=== PATIENT | male | born 1990 | race Caucasian/White ===

== ENCOUNTER 2021-12-26 17:26 | Inpatient (IN) | payer BC, SELFPAY ==
--- NOTE | ~2021-12-26 | CT_ITS ---
EXAMINATION: CT ABDOMEN AND PELVIS WITHOUT CONTRAST CLINICAL INFORMATION: Lower abdominal pain. COMPARISON: None TECHNIQUE: Multidetector volumetric imaging was performed from the superior aspect of the liver through the pubic symphysis. Sagittal and coronal reformatted images were obtained on the technologist's workstation. This CT examination was performed using dose optimization techniques as appropriate, variously including the following: *Automated exposure control *Adjustment of mA and/or kV according to patient size (this includes techniques or standardized protocols for targeted exams where dose is matched to indication/reason for exam; i.e. extremities or head) *Use of iterative reconstruction technique DLP: 813 mGy-cm FINDINGS: LUNG BASES: The visualized lung bases are unremarkable. LIVER, GALLBLADDER, AND BILIARY TREE: The liver is normal in size, shape, and attenuation. No focal hepatic lesion or biliary ductal dilatation is present. The gallbladder is unremarkable with no evidence of radiopaque gallstones, gallbladder wall thickening, or obvious pericholecystic inflammatory changes. PANCREAS: Unremarkable. SPLEEN: Unremarkable. ADRENAL GLANDS: Unremarkable. KIDNEYS AND URETERS: The kidneys are normal in size, shape, and attenuation. No hydronephrosis, hydroureter, or calculi seen. No perinephric stranding. BLADDER: Unremarkable. GASTROINTESTINAL TRACT: The appendix is normal. There is diverticulosis of the sigmoid colon with focal diverticulitis of the mid sigmoid. There is focal inflamed diverticulum with surrounding edema in the mesentery and associated bowel wall thickening at the mid sigmoid colon. There is no abscess. There are small air collections at the surface of the colon which are most consistent with diverticula. A small microperforation cannot be entirely excluded however. There is no free air. Small bowel and stomach are unremarkable. ABDOMINAL WALL: No significant hernia is appreciated. LYMPH NODES: Normal. VASCULAR: Unremarkable. PELVIC VISCERA: Unremarkable. OSSEOUS STRUCTURES: Unremarkable. CT/CT abdomen pelvis wo con IMPRESSION: Focal moderate diverticulitis of the mid sigmoid colon Fleischner guidelines were followed. This critical result was discussed with Dr. Mariscal on 12/26/2021, 9:40 PM and it was ascertained that the content and urgency of the report was understood at the time of direct communication.
[2021-12-26 17:30] VITALS: BP 126/75; PULSE 115; RESP 18; TEMP 36.2; O2SAT 100; BMI 33.6
[2021-12-26 18:27] LABS: MANUAL DIFF FLAG NO
[2021-12-26 18:28] LABS: Basophils Percent Auto 0.1 % (0-2); Eosinophils Percent Auto 0.1 % (0-4); Hematocrit 42.9 % (42.0-52.0); Hemoglobin 14.7 g/dl (14.0-18.0); Imm Gran Abs Auto 0.06 X10*3/uL (0.00-0.03); Imm Gran Pct Auto 0.4 % (0.0-0.4); Lymphocytes Absolute Auto 0.8 X10*3/uL (1.2-4.9); Lymphocytes Percent Auto 5.2 % (20-40); Mean Corpuscular HGB Conc 34.3 g/dl (31.0-36.0); Mean Corpuscular Hemoglobin 30.4 pg (27.0-33.0); Mean Corpuscular Volume 88.6 fL (80.0-98.0); Mean Platelet Volume 9.7 fL (9.4-12.4); Monocytes Percent Auto 6.2 % (2-11); Neutrophils Absolute Auto 13.6 x10*3/uL (2.0-8.3); Platelet Count 264 X10*3/uL (160-400); Red Blood Count 4.84 X10*6/uL (4.60-5.80); Red Cell Distribution Width 12.7 % (11.0-16.0); White Blood Count 15.4 X10*3/uL (4.8-10.8)
[2021-12-26 18:29] LABS: Appearance Urine CLEAR; Color Urine DK YELLOW; Glucose Urine UA NEG (NEG); Leukocyte Esterase Urine NEG (NEG); Nitrite Urine NEG (NEG); UACC Culture Trigger NO; Urine Blood TRACE (NEG); Urine Ketones NEG (NEG); Urine Protein NEG (NEG-TRACE)
[2021-12-26 18:45] LABS: Alanine Aminotransferase 55 U/L (0-40); Albumin Level 4.7 g/dL (3.5-5.0); Alkaline Phosphatase 58 U/L (39-117); Anion Gap 15 (12-20); Aspartate Amino Transferase 26 U/L (5-37); Bilirubin Direct 0.3 mg/dL (0.0-0.5); Bilirubin Total 0.7 mg/dL (0.0-1.0); Blood Urea Nitrogen 14 mg/dL (9-16); Calcium 9.8 mg/dL (8.4-10.2); Carbon Dioxide 26 mmol/L (22-29); Chloride 103 mmol/L (96-108); Creatinine Clr Calc Pharmacy 134.7; Estimated Glomerular Filt Rate > 60; Glucose Random 122 mg/dL (60-115); Potassium 4.5 mmol/L (3.3-5.1); RBC Urine 0-2 /HPF (0); Sodium 139 mmol/L (135-145); Squamous Epithelial Cell Urine TRACE /LPF; Total Protein 8.1 g/dL (6.5-8.0); WBC Urine 0-2 /HPF (0-4)
--- NOTE | 2021-12-26 20:50 | ED.ABDPAIN ---
HPI - Abdominal Pain General Chief Complaint: Abdominal Pain Stated Complaint: lower abd pain Time Seen by Provider: 12/26/21 20:50 Source: patient Mode of arrival: ambulatory Limitations: no limitations History of Present Illness HPI narrative: Patient with history of hypertension and high cholesterol Comes here for pain in lower abdomen started since 07:00 the morning no nausea no vomiting pain gets worse on ambulation patient had food at lunch time no frequency had slight dysuria no hematuria no history of kidney stone Related Data Allergies Allergy/AdvReac Type Severity Reaction Status Date / Time No Known Allergies Allergy Verified 12/26/21 17:29 Review of Systems Review of Systems Yes all other systems are reviewed and are negative [facility] Past Medical History Medical History (Updated 12/26/21 @ 23:47 by Magdiel Romo MD) HTN (hypertension) Hyperlipidemia Hypothyroid Social History Social History Alcohol intake: current Alcohol intake frequency: 0-2 drinks per day Alcohol type: beer Patient Tobacco Use Status: Never used Tobacco Use of substances other than those prescribed or required for medical reasons: No Advance Directives: No Advance Directives Information Provided: No Physical Exam ED Vital Signs: Vital Signs - 24 hr 12/26/21 17:30 12/26/21 21:44 Temperature 97.1 F Pulse Rate 115 H 112 H Respiratory Rate 18 18 Blood Pressure 126/75 128/78 Pulse Oximetry 100 96 Oxygen Delivery Method Room Air Room Air BMI result Body Mass Index 33.6 Appearance: Alert. Oriented X3. No acute distress. Eyes: No pallor/icterus ENT: Pharynx normal. Oral Mucosa moist Neck: Normal inspection. Neck supple. CVS: Normal heart rate and rhythm. Pulses normal. Respiratory: No respiratory distress. Equal air entry bilateral, no wheezing/rales/rhonchi Abdomen: Soft , tenderness in right lower and left lower quadrant with guarding no rebound tenderness bowel sounds are sluggish no mass palpable, no CVA tenderness Skin: Skin warm and dry. Normal skin color. Normal skin turgor. Extremities: No lower extremity edema. No calf tenderness Neuro: Oriented X 3. No motor deficit. No sensory deficit.No cerebellar signs , cranial nerves II-XII intact MDM - Abdominal Pain MDM Narrative Medical decision making narrative: Patient with uncomplicated diverticulitis with significant pain and leukocytosis will admit patient for IV antibiotic in the CT scan shows possible microperforation but no free air seen Lab Data Attestation: I reviewed the patient's lab results. Result diagrams: 12/26/21 18:21 12/26/21 18:21 Labs: Lab Results 12/26/21 12/26/21 12/26/21 Range/Units 18:21 18:21 18:21 WBC 15.4 H (4.8-10.8) X10*3/uL RBC 4.84 (4.60-5.80) X10*6/uL Hgb 14.7 (14.0-18.0) g/dl Hct 42.9 (42.0-52.0) % MCV 88.6 (80.0-98.0) fL MCH 30.4 (27.0-33.0) pg MCHC 34.3 (31.0-36.0) g/dl RDW 12.7 (11.0-16.0) % Plt Count 264 (160-400) X10*3/uL MPV 9.7 (9.4-12.4) fL Immature Gran % (Auto) 0.4 (0.0-0.4) % Neut % (Auto) 88.0 H (45-73) % Lymph % (Auto) 5.2 L (20-40) % [place] % (Auto) 6.2 (2-11) % Eos % (Auto) 0.1 (0-4) % Baso % (Auto) 0.1 (0-2) % Lymph # (Auto) 0.8 L (1.2-4.9) X10*3/uL [place] # (Auto) 1.0 (0.1-1.2) X10*3/uL Eos # (Auto) 0.0 (0.0-0.4) X10*3/uL Baso # (Auto) 0.0 (0.0-0.2) X10*3/uL Abs Immat Gran (auto) 0.06 H (0.00-0.03) X10*3/uL Absolute Neuts (auto) 13.6 H (2.0-8.3) x10*3/uL Absolute Nucleated RBC 0.000 (0.0-0.012) X10*3/uL Nucleated RBC % (auto) 0.0 (0.0-0.2) /100WBC Sodium 139 (135-145) mmol/L Potassium 4.5 (3.3-5.1) mmol/L Chloride 103 (96-108) mmol/L Carbon Dioxide 26 (22-29) mmol/L Anion Gap 15 (12-20) BUN 14 (9-16) mg/dL Creatinine 0.90 (0.5-1.4) mg/dL Estim Creat Clear Calc 134.7 Estimated GFR > 60 Random Glucose 122 H (60-115) mg/dL Calcium 9.8 (8.4-10.2) mg/dL Total Bilirubin 0.7 (0.0-1.0) mg/dL Direct Bilirubin 0.3 (0.0-0.5) mg/dL AST 26 (5-37) U/L ALT 55 H (0-40) U/L Alkaline Phosphatase 58 (39-117) U/L Total Protein 8.1 H (6.5-8.0) g/dL Albumin 4.7 (3.5-5.0) g/dL Lipase 13 (8-78) U/L Urine Color DK YELLOW Urine Appearance CLEAR Urine pH 6.0 (5.0-8.0) Ur Specific [place] 1.020 (1.005-1.025) Urine Protein NEG (NEG-TRACE) MG/DL Urine Glucose (UA) NEG (NEG) MG/DL Urine Ketones NEG (NEG) MG/DL Urine Blood TRACE (NEG) Urine Nitrite NEG (NEG) Ur Leukocyte Esterase NEG (NEG) Urine RBC 0-2 (0) /HPF Urine WBC 0-2 (0-4) /HPF Ur Squamous Epith Cells TRACE /LPF Urine Bacteria NONE /LPF COVID-19 (NATHAN) (Negative) COVID-19 Clin Com 12/26/21 Range/Units 22:54 WBC (4.8-10.8) X10*3/uL RBC (4.60-5.80) X10*6/uL Hgb (14.0-18.0) g/dl Hct (42.0-52.0) % MCV (80.0-98.0) fL MCH (27.0-33.0) pg MCHC (31.0-36.0) g/dl RDW (11.0-16.0) % Plt Count (160-400) X10*3/uL MPV (9.4-12.4) fL Immature Gran % (Auto) (0.0-0.4) % Neut % (Auto) (45-73) % Lymph % (Auto) (20-40) % [place] % (Auto) (2-11) % Eos % (Auto) (0-4) % Baso % (Auto) (0-2) % Lymph # (Auto) (1.2-4.9) X10*3/uL [place] # (Auto) (0.1-1.2) X10*3/uL Eos # (Auto) (0.0-0.4) X10*3/uL Baso # (Auto) (0.0-0.2) X10*3/uL Abs Immat Gran (auto) (0.00-0.03) X10*3/uL Absolute Neuts (auto) (2.0-8.3) x10*3/uL Absolute Nucleated RBC (0.0-0.012) X10*3/uL Nucleated RBC % (auto) (0.0-0.2) /100WBC Sodium (135-145) mmol/L Potassium (3.3-5.1) mmol/L Chloride (96-108) mmol/L Carbon Dioxide (22-29) mmol/L Anion Gap (12-20) BUN (9-16) mg/dL Creatinine (0.5-1.4) mg/dL Estim Creat Clear Calc Estimated GFR Random Glucose (60-115) mg/dL Calcium (8.4-10.2) mg/dL Total Bilirubin (0.0-1.0) mg/dL Direct Bilirubin (0.0-0.5) mg/dL AST (5-37) U/L ALT (0-40) U/L Alkaline Phosphatase (39-117) U/L Total Protein (6.5-8.0) g/dL Albumin (3.5-5.0) g/dL Lipase (8-78) U/L Urine Color Urine Appearance Urine pH (5.0-8.0) Ur Specific [place] (1.005-1.025) Urine Protein (NEG-TRACE) MG/DL Urine Glucose (UA) (NEG) MG/DL Urine Ketones (NEG) MG/DL Urine Blood (NEG) Urine Nitrite (NEG) Ur Leukocyte Esterase (NEG) Urine RBC (0) /HPF Urine WBC (0-4) /HPF Ur Squamous Epith Cells /LPF Urine Bacteria /LPF COVID-19 (NATHAN) Negative (Negative) COVID-19 Clin Com See Note Imaging Data CT scan - abdomen: Attestation: I personally reviewed and interpreted this imaging study as follows: Radiologist's impression: GASTROINTESTINAL TRACT: The appendix is normal. There is diverticulosis of the sigmoid colon with focal diverticulitis of the mid sigmoid. There is focal inflamed diverticulum with surrounding edema in the mesentery and associated bowel wall thickening at the mid sigmoid colon. There is no abscess. There are small air collections at the surface of the colon which are most consistent with diverticula. A small microperforation cannot be entirely excluded however. There is no free air. Discharge Plan Discharge Clinical Impression: Diverticulitis Patient Disposition: Admitted As Inpatient
[2021-12-26 21:12] LABS: Lipase 13 U/L (8-78)
[2021-12-26] MEDS: 0.9 % Sodium Chloride 1,000 ML 999 ML IV (21:40)
[2021-12-26 21:44] VITALS: BP 128/78; PULSE 112; RESP 18; O2SAT 96
[2021-12-26] MEDS: Piperacillin Sodium/Tazobactam 3.375 GM in 0.9 % Sodium Chloride 50 ML IV (22:05)
[2021-12-26] MEDS: ondansetron HCL 4 MG/2 ML VIAL IVPUSH (22:05)
[2021-12-26 23:17] LABS: COVID-19 Test Negative (Negative)
[2021-12-26] MEDS: cefTRIAXone sodium 1 GM in 0.9 % Sodium Chloride 50 ML IV (23:30)
--- NOTE | 2021-12-26 23:30 | P.HPHOSP_ITS ---
History of Present Illness Date of Service: 12/26/21 Chief Complaint: Abdominal pain this is a 31-year-old male with past medical history of hypertension, hyperlipidemia, hypothyroidism who presents to the hospital with complaints of abdominal pain in the lower abdomen that started in the a.m.. Patient reports the pain to be 9/10, nonradiating, not relieved with Tylenol, no associated exacerbating factors. Has pain in that area when he urinates, he hasno nausea or vomiting, no diarrhea constipation, no urinary symptoms and no lower extremity edema. Patient denies any fever no chills. No headache or change in vision. On arrival to the ED patient hemodynamically stable with a heart rate of 115 Labs are significant for WBC count of 15.4 otherwise unremarkable UA negative. CT abdomen revealed focal moderate diverticulitis of the mid sigmoid colon with questionable microperforation patient will be admitted further evaluation Review of Systems Review of Systems: Yes all other systems are reviewed and are negative [facility] Medical History HTN (hypertension) Hyperlipidemia Hypothyroid Family History (Updated 12/27/21 @ 06:19 by Olinda Connlel MD) Other No family history of coronary artery disease Surgical History (Updated 12/27/21 @ 06:19 by Olinda Connell MD) H/O adenoidectomy Social History Alcohol intake: current Alcohol intake frequency: 0-2 drinks per day Alcohol type: beer Patient Tobacco Use Status: Never used Tobacco Use of substances other than those prescribed or required for medical reasons: No Advance Directives: No Advance Directives Information Provided: No Meds Allergies Allergy/AdvReac Type Severity Reaction Status Date / Time No Known Allergies Allergy Verified 12/26/21 17:29 Physical Exam Vital Signs and Narrative: Vital Signs: Last Vital Signs Temp 97.1 F 12/26/21 17:30 Pulse 112 H 12/26/21 21:44 Resp 18 12/26/21 21:44 BP 128/78 12/26/21 21:44 Pulse Ox 96 12/26/21 21:44 O2 Del Method 12/26/21 21:44 BMI result Body Mass Index 33.6 Const: General: cooperative and no acute distress Orientation/consciousness: patient oriented x3 Eyes: General: appearance normal, both eyes and all related structures Resp: Effort & Inspection: normal respiratory effort Auscultation: clear to auscultation bilaterally Cardio: Rate: regular rate Rhythm: regular rhythm GI: Other: abdomen is soft, no rebound or guarding, tender in the lower abdomen in both quadrant Palpation (GI): Soft to palpation Auscultation: normal bowel sounds Skin: General skin exam: no rashes or lesions noted Neuro: General: patient oriented x3 Cognition (Neuro): normal cognition Extrem: General: Yes normal to inspection and Yes no pedal edema Results Labs CBC and Chem 7: 12/27/21 04:23 12/27/21 04:23 Labs: Laboratory Results - last 24 hr 12/26/21 12/26/21 12/26/21 18:21 18:21 18:21 MCV 88.6 MCH 30.4 MCHC 34.3 RDW 12.7 Plt Count 264 MPV 9.7 Immature Gran % (Auto) 0.4 Neut % (Auto) 88.0 H Lymph % (Auto) 5.2 L [place] % (Auto) 6.2 Eos % (Auto) 0.1 Baso % (Auto) 0.1 Lymph # (Auto) 0.8 L [place] # (Auto) 1.0 Eos # (Auto) 0.0 Baso # (Auto) 0.0 Abs Immat Gran (auto) 0.06 H Absolute Neuts (auto) 13.6 H Absolute Nucleated RBC 0.000 Nucleated RBC % (auto) 0.0 Anion Gap 15 Estim Creat Clear Calc 134.7 Estimated GFR > 60 Random Glucose 122 H Calcium 9.8 Total Bilirubin 0.7 Direct Bilirubin 0.3 AST 26 ALT 55 H Alkaline Phosphatase 58 Total Protein 8.1 H Albumin 4.7 Lipase 13 Urine Color DK YELLOW Urine Appearance CLEAR Urine pH 6.0 Ur Specific [place] 1.020 Urine Protein NEG Urine Glucose (UA) NEG Urine Ketones NEG Urine Blood TRACE Urine Nitrite NEG Ur Leukocyte Esterase NEG Urine RBC 0-2 Urine WBC 0-2 Ur Squamous Epith Cells TRACE Urine Bacteria NONE COVID-19 (NATHAN) COVID-19 Clin Com 12/26/21 22:54 MCV MCH MCHC RDW Plt Count MPV Immature Gran % (Auto) Neut % (Auto) Lymph % (Auto) [place] % (Auto) Eos % (Auto) Baso % (Auto) Lymph # (Auto) [place] # (Auto) Eos # (Auto) Baso # (Auto) Abs Immat Gran (auto) Absolute Neuts (auto) Absolute Nucleated RBC Nucleated RBC % (auto) Anion Gap Estim Creat Clear Calc Estimated GFR Random Glucose Calcium Total Bilirubin Direct Bilirubin AST ALT Alkaline Phosphatase Total Protein Albumin Lipase Urine Color Urine Appearance Urine pH Ur Specific [place] Urine Protein Urine Glucose (UA) Urine Ketones Urine Blood Urine Nitrite Ur Leukocyte Esterase Urine RBC Urine WBC Ur Squamous Epith Cells Urine Bacteria COVID-19 (NATHAN) Negative COVID-19 Clin Com See Note Imaging Radiologist's Impressions: Impressions Abdomen/Pelvis CT 12/26/21 21:09 IMPRESSION: Focal moderate diverticulitis of the mid sigmoid colon Fleischner guidelines were followed. This critical result was discussed with Dr. Mariscal on 12/26/2021, 9:40 PM and it was ascertained that the content and urgency of the report was understood at the time of direct communication. Assessment and Plan (1) Diverticulitis: Status: Acute Plan this is a 31-year-old male with past medical history of documented hypertension hypothyroidism who presents to the hospital with complaints of abdominal pain found to have diverticulitis # acute diverticulitis - with possible micro perforation as seen on CT scan - patient hemodynamically stable, no rebound or guarding - will treat with IV antibiotics - follow cultures - surgical team consulted due to the possible microperforations seen on CT scan # reported history of hypertension - does not appear to be on any antihypertensives - BP stable at this time - monitor with vitals # reports history of hypothyroidism - does not take any medications - will need outpatient follow-up with PCP DVT prophylaxis: Lovenox given the acute diverticulitis with possible microperforation patient remained minimal 2 night hospital stay for further management and monitoring Quality Stroke Does the patient have a stroke diagnosis?: No VTE Prior VTE?: No VTE Risk Level:: Medical - moderate - high VTE Device Contraindication: Treatment Not Indicated VTE Drug Contraindication: N/A - Med Ordered
[2021-12-26 23:44] VITALS: RESP 18; O2SAT 96
[2021-12-27] MEDS: Enoxaparin Sodium 40 MG/0.4 ML SYRINGE SUBCUT (00:01)
[2021-12-27] MEDS: Morphine Sulfate 4 MG/ML CARTRIDGE IVPUSH ×2 (00:02→04:24)
[2021-12-27] MEDS: metroNIDAZOLE/NS 500 MG/100 ML PIGGYBACK 100 MG IV ×4 (00:04→23:39)
[2021-12-27] MEDS: 0.9 % Sodium Chloride Flush 3 ML SYRINGE IVFLUSH ×3 (00:05→20:33)
[2021-12-27 04:55] LABS: Basophils Percent Auto 0.3 % (0-2); Eosinophils Absolute Auto 0.1 X10*3/uL (0.0-0.4); Eosinophils Percent Auto 0.4 % (0-4); Hematocrit 40.8 % (42.0-52.0); Hemoglobin 13.8 g/dl (14.0-18.0); Imm Gran Abs Auto 0.07 X10*3/uL (0.00-0.03); Imm Gran Pct Auto 0.5 % (0.0-0.4); Lymphocytes Percent Auto 14.2 % (20-40); MANUAL DIFF FLAG NO; Mean Corpuscular HGB Conc 33.8 g/dl (31.0-36.0); Mean Corpuscular Hemoglobin 30.5 pg (27.0-33.0); Mean Corpuscular Volume 90.3 fL (80.0-98.0); Neutrophils Percent Auto 77.6 % (45-73); Platelet Count 238 X10*3/uL (160-400); Red Blood Count 4.52 X10*6/uL (4.60-5.80); Red Cell Distribution Width 12.9 % (11.0-16.0); White Blood Count 14.1 X10*3/uL (4.8-10.8)
[2021-12-27 05:14] LABS: Anion Gap 14 (12-20); Blood Urea Nitrogen 11 mg/dL (9-16); Calcium 9.1 mg/dL (8.4-10.2); Carbon Dioxide 24 mmol/L (22-29); Chloride 104 mmol/L (96-108); Estimated Glomerular Filt Rate > 60; Glucose Random 101 mg/dL (60-115); Potassium 4.1 mmol/L (3.3-5.1); Sodium 138 mmol/L (135-145)
--- NOTE | 2021-12-27 06:34 | PHA.MEDREC ---
Pharmacy Consult ? Medication Reconciliation Pharmacy has reviewed the medication reconciliation completed by Alfie. Inderal dose and directions were not include. Dose is now updated. Keri Martinez, PharmD
[2021-12-27] MEDS: Levothyroxine Sodium 25 MCG TABLET PO (06:37)
[2021-12-27 06:46] VITALS: BP 136/76; PULSE 105; RESP 14; O2SAT 95
--- NOTE | 2021-12-27 07:47 | P.CONGS_ITS ---
History of Present Illness Consult details Consult date: 12/27/21 Requesting physician: Olinda Connell Narrative: 31-year-old male patient presenting with complaints of abdominal pain in the right lower quadrant and suprapubic region beginning yesterday. He reports a prior episode several months ago which resolved spontaneously. Current episode resulted in abdominal pain measuring 8 to 9/10. The pain remains at 9/10 currently. He denies nausea, vomiting, fever, but did report some chills. He has not moved his bowels for several days which is unusual for him. He reports pain with ambulation and pain when trying to have a bowel movement. He presented to the emergency department around 19:00 yesterday. [place] [address] of the abdomen pelvis revealed sigmoid diverticulitis with the possibility of a micro perforation. No free air or abscess is identified. He is admitted for IV antibiotics and pain control. Review of Systems Review of Systems: Yes all other systems are reviewed and are negative Constitutional: Constitutional: Reports chills, Denies fever(s) and Reports poor appetite Cardiovascular: Cardiovascular: Reports Abdominal Distension Gastrointestinal: Gastrointestinal: Reports as per HPI, Reports abdominal pain, Reports bloating, Denies nausea and Denies vomiting PMFSH Past Medical History Medical History HTN (hypertension) Hyperlipidemia Hypothyroid Family History Family History Other No family history of coronary artery disease Surgical History Surgical History H/O adenoidectomy Social History Social History Alcohol intake: current Alcohol intake frequency: 0-2 drinks per day Alcohol type: beer Patient Tobacco Use Status: Never used Tobacco Use of substances other than those prescribed or required for medical reasons: No Advance Directives: No Advance Directives Information Provided: No Meds Allergies Allergy/AdvReac Type Severity Reaction Status Date / Time No Known Allergies Allergy Verified 12/26/21 17:29 Active Medications: Current Medications Acetaminophen (Acetaminophen 325 Mg Tablet) 650 mg PO Q6H PRN PRN Reason: Pain, Mild (Pain Scale 1-3) Atorvastatin Calcium (Atorvastatin Calcium 40 Mg Tablet) 40 mg PO DAILY [facility] Enoxaparin Sodium (Enoxaparin Sodium 40 Mg/0.4 Ml Syringe) 40 mg SUBCUT Q24H [facility] Last Admin: 12/27/21 00:01 Dose: 40 mg Ceftriaxone Sodium 1 gm/ (Sodium Chloride) 50 mls @ 100 mls/hr IV Q24H [facility] Last Infusion: 12/27/21 00:05 Dose: Infused Metronidazole (Flagyl) 500 mg in 100 mls @ 100 mls/hr IV Q8H [facility] Last Admin: 12/27/21 06:33 Dose: 100 mls/hr Levothyroxine Sodium (Levothyroxine Sodium 25 Mcg Tablet) 25 mcg PO DAILY@0600 [facility] Last Admin: 12/27/21 06:37 Dose: 25 mcg Morphine Sulfate (Morphine Sulfate 4 Mg/Ml Cartridge) 4 mg IVPUSH Q4H PRN; Protocol PRN Reason: Pain, Severe (Pain Scale 7-10) Last Admin: 12/27/21 04:24 Dose: 4 mg Ondansetron HCl (Ondansetron Hcl 4 Mg/2 Ml Vial) 4 mg IVPUSH Q8H PRN PRN Reason: Nausea and Vomiting Oxycodone HCl (Oxycodone Hcl Immed Release 5 Mg Tablet) 5 mg PO Q6H PRN PRN Reason: Pain, Severe (Pain Scale 7-10) Pharmacy Consult (Consult Rx Perform Med Rec) 1 each MISCELLANE ONCE PRN PRN Reason: Consult order Sodium Chloride (0.9 % Sodium Chloride Flush 3 Ml Syringe) 3 ml IVFLUSH QSHIFT [facility] Last Admin: 12/27/21 00:05 Dose: 3 ml Home Medications Medication Instructions Recorded Confirmed Last Taken Type levothyroxine 25 mcg tablet 25 mcg PO DAILY 12/27/21 12/27/21 12/26/21 History propranolol 80 mg tablet 1 tab PO BID 12/27/21 12/27/21 12/26/21 History rosuvastatin 10 mg tablet (Crestor) 10 mg PO DAILY 12/27/21 12/27/21 12/26/21 History Physical Exam Vital Signs: Vital Signs: Last Vital Signs Temp 97.1 F 12/26/21 17:30 Pulse 105 H 12/27/21 06:46 Resp 14 12/27/21 06:46 BP 136/76 12/27/21 06:46 Pulse Ox 95 12/27/21 06:46 O2 Del Method 12/27/21 06:46 BMI result Body Mass Index 33.6 Const: General: well developed and tired appearing Nutritional Appearance: well nourished Orientation/consciousness: patient oriented x3 Limitations: no limitations HEENT: Head: Yes normocephalic and Yes atraumatic Ears: hearing grossly normal bilaterally Resp: Effort & Inspection: normal respiratory effort, no audible wheezes, no cough and no respiratory distress GI: Inspection: Yes normal to inspection Palpation (GI): Soft to palpation, Tenderness to palpation present (GI) in the RLQ, in the LUQ and suprapubicly; with no rebound tenderness, no guarding and not rigid Percussion: Yes tympanic to percussion Rectal Exam - Male: Yes deferred Skin: General skin exam: no rashes or lesions noted Neuro: General: patient oriented x3 Extrem: General: Yes no clubbing, cyanosis or edema Results Labs Result diagrams: 12/27/21 04:23 12/27/21 04:23 Labs: Abnormal lab results 12/26/21 12/26/21 12/27/21 Range/Units 18:21 18:21 04:23 WBC 15.4 H 14.1 H (4.8-10.8) X10*3/uL RBC 4.52 L (4.60-5.80) X10*6/uL Hgb 13.8 L (14.0-18.0) g/dl Hct 40.8 L (42.0-52.0) % Immature Gran % (Auto) 0.5 H (0.0-0.4) % Neut % (Auto) 88.0 H 77.6 H (45-73) % Lymph % (Auto) 5.2 L 14.2 L (20-40) % Lymph # (Auto) 0.8 L (1.2-4.9) X10*3/uL Abs Immat Gran (auto) 0.06 H 0.07 H (0.00-0.03) X10*3/uL Absolute Neuts (auto) 13.6 H 11.0 H (2.0-8.3) x10*3/uL Random Glucose 122 H (60-115) mg/dL ALT 55 H (0-40) U/L Total Protein 8.1 H (6.5-8.0) g/dL Short CBC 12/26/21 12/27/21 Range/Units 18:21 04:23 WBC 15.4 H 14.1 H (4.8-10.8) X10*3/uL Hgb 14.7 13.8 L (14.0-18.0) g/dl Hct 42.9 40.8 L (42.0-52.0) % Plt Count 264 238 (160-400) X10*3/uL BMP 12/26/21 12/27/21 18:21 04:23 Sodium 139 138 Potassium 4.5 4.1 Chloride 103 104 Carbon Dioxide 26 24 BUN 14 11 Creatinine 0.90 0.86 Calcium 9.8 9.1 D Liver Function 12/26/21 Range/Units 18:21 Total Bilirubin 0.7 (0.0-1.0) mg/dL Direct Bilirubin 0.3 (0.0-0.5) mg/dL AST 26 (5-37) U/L ALT 55 H (0-40) U/L Alkaline Phosphatase 58 (39-117) U/L Albumin 4.7 (3.5-5.0) g/dL Urine 12/26/21 Range/Units 18:21 Urine Color DK YELLOW Urine Appearance CLEAR Urine pH 6.0 (5.0-8.0) Ur Specific [place] 1.020 (1.005-1.025) Urine Protein NEG (NEG-TRACE) MG/DL Urine Glucose (UA) NEG (NEG) MG/DL All other labs normal. Imaging Abdomen CT scan report/results: image reviewed CT scan - pelvis: image reviewed Assessment and Plan (1) Diverticulitis: Status: Acute Plan 31-year-old male patient presenting with new onset sigmoid diverticulitis with possible micro perforation. Patient presents with an elevated WBC of [address] suggestive of acute sigmoid diverticulitis without abscess or free air. Patient is currently on ceftriaxone and metronidazole. Recommend continuing the antibiotics and transiting to orals once WBC normalizes. Would not anticipate surgical intervention unless recurrent episodes or complicated diverticulitis develops. Patient expressed understanding and agrees with the plan. Procedures Date of Service Date of Service: 12/27/21
[2021-12-27 08:10] VITALS: BP 148/78; PULSE 104; RESP 14; TEMP 37.4; O2SAT 92
[2021-12-27] MEDS: Lactated Ringers 1,000 ML 100 ML IVCONT ×2 (08:30→14:02)
--- NOTE | 2021-12-27 09:55 | HO.PM.IMPN ---
Subjective Subjective Date of Service: 12/27/21 Interval History: cc: abd pain interval history: mostly unchanged, no appetite Cardiovascular Cardiovascular: Reports no additional cardiovascular complaints Respiratory Respiratory: Reports no additional respiratory complaints Physical Exam Vital Signs: Vital Signs: Last Vital Signs Temp 99.4 F 12/27/21 08:10 Pulse 104 H 12/27/21 08:10 Resp 14 12/27/21 08:10 BP 148/78 H 12/27/21 08:10 Pulse Ox 92 12/27/21 08:10 O2 Del Method 12/27/21 08:10 BMI result Body Mass Index 33.6 General: AO X 3, no acute distress Resp: CTA bilateral, no accessory muscles used CVS: S1,S2,RRR GI: soft, tender, non distended Neuro: motor grossly intact, alert Psych: appropriate affect, appropriate insight Objective Data Active Medications Acetaminophen (Acetaminophen 325 Mg Tablet) 650 mg PO Q6H PRN PRN Reason: Pain, Mild (Pain Scale 1-3) Atorvastatin Calcium (Atorvastatin Calcium 40 Mg Tablet) 40 mg PO DAILY [facility] Enoxaparin Sodium (Enoxaparin Sodium 40 Mg/0.4 Ml Syringe) 40 mg SUBCUT Q24H [facility] Last Admin: 12/27/21 00:01 Dose: 40 mg Documented By: NICOLE-MIGUELANGEL Ceftriaxone Sodium 1 gm/ (Sodium Chloride) 50 mls @ 100 mls/hr IV Q24H [facility] Last Infusion: 12/27/21 00:05 Dose: 0 mls/hr Documented By: NICOLE-MIGUELANGEL Metronidazole (Flagyl) 500 mg in 100 mls @ 100 mls/hr IV Q8H [facility] Last Infusion: 12/27/21 08:05 Dose: 0 mls/hr Documented By: JACKSON Lactated Ringer's (Lr) 1,000 mls @ 100 mls/hr IVCONT .Q10H [facility] Last Admin: 12/27/21 08:30 Dose: 100 mls/hr Documented By: JACKSON Levothyroxine Sodium (Levothyroxine Sodium 25 Mcg Tablet) 25 mcg PO DAILY@0600 [facility] Last Admin: 12/27/21 06:37 Dose: 25 mcg Documented By: NICOLE-MIGUELANGEL Morphine Sulfate (Morphine Sulfate 4 Mg/Ml Cartridge) 4 mg IVPUSH Q4H PRN; Protocol PRN Reason: Pain, Severe (Pain Scale 7-10) Last Admin: 12/27/21 04:24 Dose: 4 mg Documented By: RACHEL Ondansetron HCl (Ondansetron Hcl 4 Mg/2 Ml Vial) 4 mg IVPUSH Q8H PRN PRN Reason: Nausea and Vomiting Oxycodone HCl (Oxycodone Hcl Immed Release 5 Mg Tablet) 5 mg PO Q6H PRN PRN Reason: Pain, Severe (Pain Scale 7-10) Pharmacy Consult (Consult Rx Perform Med Rec) 1 each MISCELLANE ONCE PRN PRN Reason: Consult order Sodium Chloride (0.9 % Sodium Chloride Flush 3 Ml Syringe) 3 ml IVFLUSH QSHIFT [facility] Last Admin: 12/27/21 08:05 Dose: Not Given Documented By: JACKSON Non-Admin Reason: IV Running Labs CBC & Chem 7: 12/27/21 04:23 12/27/21 04:23 Labs: Laboratory Results - last 24 hr 12/26/21 12/26/21 12/26/21 18:21 18:21 18:21 MCV 88.6 MCH 30.4 MCHC 34.3 RDW 12.7 Plt Count 264 MPV 9.7 Immature Gran % (Auto) 0.4 Neut % (Auto) 88.0 H Lymph % (Auto) 5.2 L Dickson % (Auto) 6.2 Eos % (Auto) 0.1 Baso % (Auto) 0.1 Lymph # (Auto) 0.8 L Dickson # (Auto) 1.0 Eos # (Auto) 0.0 Baso # (Auto) 0.0 Abs Immat Gran (auto) 0.06 H Absolute Neuts (auto) 13.6 H Absolute Nucleated RBC 0.000 Nucleated RBC % (auto) 0.0 Anion Gap 15 Estim Creat Clear Calc 134.7 Estimated GFR > 60 Random Glucose 122 H Calcium 9.8 Total Bilirubin 0.7 Direct Bilirubin 0.3 AST 26 ALT 55 H Alkaline Phosphatase 58 Total Protein 8.1 H Albumin 4.7 Lipase 13 Urine Color DK YELLOW Urine Appearance CLEAR Urine pH 6.0 Ur Specific [place] 1.020 Urine Protein NEG Urine Glucose (UA) NEG Urine Ketones NEG Urine Blood TRACE Urine Nitrite NEG Ur Leukocyte Esterase NEG Urine RBC 0-2 Urine WBC 0-2 Ur Squamous Epith Cells TRACE Urine Bacteria NONE COVID-19 ([facility]ATHAN) COVID-19 Clin Com 12/26/21 12/27/21 12/27/21 22:54 04:23 04:23 MCV 90.3 MCH 30.5 MCHC 33.8 RDW 12.9 Plt Count 238 MPV 10.0 Immature Gran % (Auto) 0.5 H Neut % (Auto) 77.6 H Lymph % (Auto) 14.2 L Dickson % (Auto) 7.0 Eos % (Auto) 0.4 Baso % (Auto) 0.3 Lymph # (Auto) 2.0 Dickson # (Auto) 1.0 Eos # (Auto) 0.1 Baso # (Auto) 0.0 Abs Immat Gran (auto) 0.07 H Absolute Neuts (auto) 11.0 H Absolute Nucleated RBC 0.000 Nucleated RBC % (auto) 0.0 Anion Gap 14 Estim Creat Clear Calc 141.0 Estimated GFR > 60 Random Glucose 101 Calcium 9.1 D Total Bilirubin Direct Bilirubin AST ALT Alkaline Phosphatase Total Protein Albumin Lipase Urine Color Urine Appearance Urine pH Ur Specific [place] Urine Protein Urine Glucose (UA) Urine Ketones Urine Blood Urine Nitrite Ur Leukocyte Esterase Urine RBC Urine WBC Ur Squamous Epith Cells Urine Bacteria COVID-19 (NATHAN) Negative COVID-19 Clin Com See Note Assessment and Plan (1) Diverticulitis: Status: Acute Plan 31M presented with abd pain acute diverticulitis with microperforation continue rocephin, flagyl follow up cultures npo for now with iv fluids and pain meds surgery following, expected to recover with abx HTN propanolol hld statin hypothyroid synthroid dvt prophylaxis - lovenox full code reason for continued hospitalization:not tolerating po, need for ivf and iv antibiotics as well as close monitoring for microperforation/decompensation Quality Stroke Does the patient have a stroke diagnosis?: No VTE Prior VTE?: No VTE Risk Level:: Medical - moderate - high VTE Device Contraindication: Treatment Not Indicated VTE Drug Contraindication: N/A - Med Ordered
[2021-12-27] MEDS: Atorvastatin Calcium 40 MG TABLET PO (10:37)
[2021-12-27] MEDS: Acetaminophen 325 MG TABLET 650 MG PO (10:37)
[2021-12-27] MEDS: Propranolol HCL 40 MG TABLET 80 MG PO ×2 (11:44→20:32)
--- NOTE | 2021-12-27 11:55 | PC.NURSE ---
RN assumed care at 11am today. Pt alert and oriented x4, calm and cooperative. Pt denies pain now. Pt sleeping upon nurse entering room, easily awoken with verbal stimuli. Pt tolerated PO meds well now. Pt denies N/V now. IV in left AC intact and continues to infuse fluids now without issues, denies pain at IV site, no redness or swelling at IV site. Pt aware of being admitted to room 386 and agrees to plan of care. Call x1 to VINH Earl, waiting for call back now.
[2021-12-27 12:00] VITALS: BP 140/66; PULSE 92; RESP 18; O2SAT 96
--- NOTE | 2021-12-27 12:40 | MHC.CM.PN ---
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
[2021-12-27 14:05] VITALS: BMI 33.6
[2021-12-27 15:32] VITALS: BP 136/68; PULSE 96; RESP 20; TEMP 37; O2SAT 95
[2021-12-27] MEDS: oxyCODONE HCl Immed Release 5 MG TABLET PO (17:17)
[2021-12-27 19:38] VITALS: BP 137/70; PULSE 99; RESP 20; TEMP 37.4; O2SAT 92
[2021-12-27] MEDS: cefTRIAXone sodium 1 GM in 0.9 % Sodium Chloride 50 ML IV (22:46)
[2021-12-28] VITALS (8 sets, daily range): BP systolic 94–139; BP diastolic 56–67; PULSE 78–103; RESP 18; TEMP 36.9–37.9; O2SAT 95–98
[2021-12-28] MEDS: Acetaminophen 325 MG TABLET 650 MG PO ×2 (00:02→08:00)
[2021-12-28] MEDS: Lactated Ringers 1,000 ML 100 ML IVCONT ×2 (02:53→14:52)
[2021-12-28] MEDS: Levothyroxine Sodium 25 MCG TABLET PO (05:55)
[2021-12-28 06:33] LABS: Hematocrit 39.3 % (42.0-52.0); Hemoglobin 13.2 g/dl (14.0-18.0); Mean Corpuscular HGB Conc 33.6 g/dl (31.0-36.0); Mean Corpuscular Hemoglobin 30.3 pg (27.0-33.0); Mean Corpuscular Volume 90.3 fL (80.0-98.0); Mean Platelet Volume 10.2 fL (9.4-12.4); Platelet Count 228 X10*3/uL (160-400); Red Blood Count 4.35 X10*6/uL (4.60-5.80); Red Cell Distribution Width 12.6 % (11.0-16.0); White Blood Count 14.6 X10*3/uL (4.8-10.8)
[2021-12-28 07:00] LABS: Anion Gap 14 (12-20); Blood Urea Nitrogen 12 mg/dL (9-16); Calcium 9.1 mg/dL (8.4-10.2); Carbon Dioxide 27 mmol/L (22-29); Chloride 103 mmol/L (96-108); Creatinine Clr Calc Pharmacy 146.1; Estimated Glomerular Filt Rate > 60; Glucose Fasting 90 mg/dL (60-99); Potassium 4.6 mmol/L (3.3-5.1); Sodium 139 mmol/L (135-145)
[2021-12-28] MEDS: Atorvastatin Calcium 40 MG TABLET PO (07:52)
[2021-12-28] MEDS: metroNIDAZOLE/NS 500 MG/100 ML PIGGYBACK 100 MG IV ×3 (07:52→22:45)
[2021-12-28] MEDS: Propranolol HCL 40 MG TABLET 80 MG PO (07:52)
--- NOTE | 2021-12-28 08:19 | P.PNIM_ITS ---
Subjective Subjective Date of Service: 12/29/21 Interval History: abd pain Review of Systems abd pain seems Similar to yesterday, denies any chest pain , still has no appetite with star with clear start Physical Exam Vital Signs: Vital Signs: Last Vital Signs Temp 98.6 F 12/28/21 07:51 Pulse 94 12/28/21 07:51 Resp 18 12/28/21 07:51 BP 131/65 12/28/21 07:51 Pulse Ox 95 12/28/21 07:51 O2 Del Method 12/28/21 07:51 BMI result Body Mass Index 33.6 Objective Data Active Medications Acetaminophen (Acetaminophen 325 Mg Tablet) 650 mg PO Q6H PRN PRN Reason: Pain, Mild (Pain Scale 1-3) Last Admin: 12/28/21 08:00 Dose: 650 mg Documented By: NIGHAT Atorvastatin Calcium (Atorvastatin Calcium 40 Mg Tablet) 40 mg PO DAILY [facility] Last Admin: 12/28/21 07:52 Dose: 40 mg Documented By: NIGHAT Enoxaparin Sodium (Enoxaparin Sodium 40 Mg/0.4 Ml Syringe) 40 mg SUBCUT Q24H [facility] Last Admin: 12/27/21 23:48 Dose: Not Given Documented By: KENTON Non-Admin Reason: Patient Refused Ceftriaxone Sodium 1 gm/ (Sodium Chloride) 50 mls @ 100 mls/hr IV Q24H [facility] Last Infusion: 12/27/21 23:48 Dose: 0 mls/hr Documented By: KENTON Metronidazole (Flagyl) 500 mg in 100 mls @ 100 mls/hr IV Q8H [facility] Last Admin: 12/28/21 07:52 Dose: 100 mls/hr Documented By: NIGHAT Lactated Ringer's (Lr) 1,000 mls @ 100 mls/hr IVCONT .Q10H [facility] Last Admin: 12/28/21 02:53 Dose: 100 mls/hr Documented By: KENTON Levothyroxine Sodium (Levothyroxine Sodium 25 Mcg Tablet) 25 mcg PO DAILY@0600 [facility] Last Admin: 12/28/21 05:55 Dose: 25 mcg Documented By: KENTON Morphine Sulfate (Morphine Sulfate 4 Mg/Ml Cartridge) 4 mg IVPUSH Q4H PRN; Protocol PRN Reason: Pain, Severe (Pain Scale 7-10) Last Admin: 12/27/21 04:24 Dose: 4 mg Documented By: RACHEL Ondansetron HCl (Ondansetron Hcl 4 Mg/2 Ml Vial) 4 mg IVPUSH Q8H PRN PRN Reason: Nausea and Vomiting Oxycodone HCl (Oxycodone Hcl Immed Release 5 Mg Tablet) 5 mg PO Q6H PRN PRN Reason: Pain, Severe (Pain Scale 7-10) Last Admin: 12/27/21 17:17 Dose: 5 mg Documented By: AURY Pharmacy Consult (Consult Rx Perform Med Rec) 1 each MISCELLANE ONCE PRN PRN Reason: Consult order Propranolol HCl (Propranolol Hcl 40 Mg Tablet) 80 mg PO BID [facility]; Protocol Last Admin: 12/28/21 07:52 Dose: 80 mg Documented By: NIGHAT Sodium Chloride (0.9 % Sodium Chloride Flush 3 Ml Syringe) [facility] Last Admin: 12/28/21 07:52 Dose: Not Given Documented By: NIGHAT Non-Admin Reason: IV Running Labs CBC & Chem 7: 12/29/21 05:46 12/29/21 05:46 Labs: Laboratory Results - last 24 hr 12/28/21 12/28/21 05:36 05:36 MCV 90.3 MCH 30.3 MCHC 33.6 RDW 12.6 Plt Count 228 MPV 10.2 Absolute Nucleated RBC 0.000 Nucleated RBC % (auto) 0.0 Anion Gap 14 Estim Creat Clear Calc 146.1 Estimated GFR > 60 Fasting Glucose 90 Calcium 9.1 Assessment and Plan (1) Diverticulitis: Status: Acute Plan 31M presented with abd pain acute diverticulitis with microperforation continue rocephin, flagyl follow up cultures npo for now with iv fluids and pain meds surgery following, expected to recover with abx HTN propanolol hld statin hypothyroid synthroid obesity: encouraged for weight loss/cut calories dvt prophylaxis - lovenox full code reason for continued hospitalization: Quality Stroke Does the patient have a stroke diagnosis?: No VTE Prior VTE?: No VTE Risk Level:: Medical - moderate - high VTE Device Contraindication: Treatment Not Indicated VTE Drug Contraindication: N/A - Med Ordered
--- NOTE | 2021-12-28 13:01 | MHC.CM.PN ---
STILL REQUIRES PAIN MANAGEMENT. STARTING ON CLEARS
[2021-12-28] MEDS: cefTRIAXone sodium 1 GM in 0.9 % Sodium Chloride 50 ML IV (22:08)
[2021-12-29] MEDS: Lactated Ringers 1,000 ML 100 ML IVCONT (01:03)
[2021-12-29 03:16] VITALS: BP 124/64; PULSE 87; RESP 18; TEMP 37.6; O2SAT 97
[2021-12-29] MEDS: Levothyroxine Sodium 25 MCG TABLET PO (06:00)
[2021-12-29 06:48] LABS: Hematocrit 38.5 % (42.0-52.0); Hemoglobin 12.9 g/dl (14.0-18.0); Mean Corpuscular HGB Conc 33.5 g/dl (31.0-36.0); Mean Corpuscular Hemoglobin 30.1 pg (27.0-33.0); Mean Platelet Volume 10.2 fL (9.4-12.4); Platelet Count 255 X10*3/uL (160-400); Red Blood Count 4.28 X10*6/uL (4.60-5.80); Red Cell Distribution Width 12.5 % (11.0-16.0); White Blood Count 12.8 X10*3/uL (4.8-10.8)
[2021-12-29 07:16] LABS: Anion Gap 13 (12-20); Blood Urea Nitrogen 9 mg/dL (9-16); Calcium 8.7 mg/dL (8.4-10.2); Carbon Dioxide 28 mmol/L (22-29); Chloride 104 mmol/L (96-108); Creatinine Clr Calc Pharmacy 151.6; Estimated Glomerular Filt Rate > 60; Glucose Random 105 mg/dL (60-115); Potassium 4.3 mmol/L (3.3-5.1); Sodium 141 mmol/L (135-145)
[2021-12-29 07:17] VITALS: BP 126/69; PULSE 92; RESP 20; TEMP 37; O2SAT 95
[2021-12-29] MEDS: metroNIDAZOLE/NS 500 MG/100 ML PIGGYBACK 100 MG IV ×2 (07:55→14:51)
[2021-12-29] MEDS: Atorvastatin Calcium 40 MG TABLET PO (07:55)
[2021-12-29] MEDS: Propranolol HCL 40 MG TABLET 80 MG PO (07:55)
[2021-12-29 08:00] VITALS: BP 126/69; PULSE 91; RESP 20; TEMP 37; O2SAT 96
--- NOTE | 2021-12-29 10:58 | PM.PNGS ---
Subjective Subjective Date of Service: 12/29/21 Patient reports: feels better, tolerating liquids well, flatus and bowel movement Interval history: [place] [facility] [place] reports that he is feeling much better and that he is feeling the best he has felt for a while. He has had multiple loose bowel movements this morning but no frankly watery diarrhea. He tolerated breakfast and is hoped his diet will be advanced. He otherwise denies any new complaints or interval change since his evaluation yesterday. Physical Exam Vital Signs: Vital Signs: Last Vital Signs Temp 98.6 F 12/29/21 08:00 Pulse 91 12/29/21 08:00 Resp 20 12/29/21 08:00 BP 126/69 12/29/21 08:00 Pulse Ox 96 12/29/21 08:00 O2 Del Method 12/29/21 08:00 BMI result Body Mass Index 33.6 On exam, he is nontoxic is in good spirits NC/AT, PERRLA, EOMI Sclera are anicteric, conjunctiva pink and moist Mucous membranes are moist Abdomen is obese and soft with no rebound, rigidity, guarding. Patient reports some vague suprapubic discomfort on deep palpation No hernias are appreciated The skin is good turgor and is free of rashes Extremities are free of cyanosis clubbing edema Mood, affect and judgment appear intact Objective Data Active Medications Acetaminophen (Acetaminophen 325 Mg Tablet) 650 mg PO Q6H PRN PRN Reason: Pain, Mild (Pain Scale 1-3) Last Admin: 12/28/21 08:00 Dose: 650 mg Documented By: NIGHAT Atorvastatin Calcium (Atorvastatin Calcium 40 Mg Tablet) 40 mg PO DAILY [facility] Last Admin: 12/29/21 07:55 Dose: 40 mg Documented By: SANDOVAL Enoxaparin Sodium (Enoxaparin Sodium 40 Mg/0.4 Ml Syringe) 40 mg SUBCUT Q24H [facility] Last Admin: 12/28/21 22:51 Dose: Not Given Documented By: ANNMARIE Non-Admin Reason: Patient Refused Ceftriaxone Sodium 1 gm/ (Sodium Chloride) 50 mls @ 100 mls/hr IV Q24H [facility] Last Infusion: 12/28/21 22:47 Dose: 0 mls/hr Documented By: ANNMARIE Metronidazole (Flagyl) 500 mg in 100 mls @ 100 mls/hr IV Q8H [facility] Last Infusion: 12/29/21 08:55 Dose: 0 mls/hr Documented By: SANDOVAL Levothyroxine Sodium (Levothyroxine Sodium 25 Mcg Tablet) 25 mcg PO DAILY@0600 [facility] Last Admin: 12/29/21 06:00 Dose: 25 mcg Documented By: ANNMARIE Morphine Sulfate (Morphine Sulfate 4 Mg/Ml Cartridge) 4 mg IVPUSH Q4H PRN; Protocol PRN Reason: Pain, Severe (Pain Scale 7-10) Last Admin: 12/27/21 04:24 Dose: 4 mg Documented By: NICOLE-MIGUELANGEL Ondansetron HCl (Ondansetron Hcl 4 Mg/2 Ml Vial) 4 mg IVPUSH Q8H PRN PRN Reason: Nausea and Vomiting Oxycodone HCl (Oxycodone Hcl Immed Release 5 Mg Tablet) 5 mg PO Q6H PRN PRN Reason: Pain, Severe (Pain Scale 7-10) Last Admin: 12/27/21 17:17 Dose: 5 mg Documented By: AURY Pharmacy Consult (Consult Rx Perform Med Rec) 1 each MISCELLANE ONCE PRN PRN Reason: Consult order Propranolol HCl (Propranolol Hcl 40 Mg Tablet) 80 mg PO BID [facility]; Protocol Last Admin: 12/29/21 07:55 Dose: 80 mg Documented By: SANDOVAL Sodium Chloride (0.9 % Sodium Chloride Flush 3 Ml Syringe) 3 ml IVFLUSH QSHIFT [facility] Last Admin: 12/29/21 07:56 Dose: Not Given Documented By: SANDOVAL Non-Admin Reason: IV Running Labs CBC & Chem 7: 12/29/21 05:46 12/29/21 05:46 Labs: Laboratory Results - last 24 hr 12/29/21 12/29/21 05:46 05:46 MCV 90.0 MCH 30.1 MCHC 33.5 RDW 12.5 Plt Count 255 MPV 10.2 Absolute Nucleated RBC 0.000 Nucleated RBC % (auto) 0.0 Anion Gap 13 Estim Creat Clear Calc 151.6 Estimated GFR > 60 Random Glucose 105 Calcium 8.7 Procedures Date of Service Date of Service: 12/29/21 Progress Note: A&P Assessment and plan (1) Diverticulitis: Status: Acute Plan Would hold on advancing the diet today since the patient is still reporting some pain and has a mild leukocytosis. Continue to encourage out of bed/ambulation and contact me with any surgical questions. Trend labs. Time Spent With Patient Time: Total time spent is greater than 50% in coordination of care (as documented) at patient's floor/unit and/or counseling patient: Quality Stroke Does the patient have a stroke diagnosis?: No VTE Prior VTE?: No VTE Risk Level:: Medical - moderate - high VTE Device Contraindication: Treatment Not Indicated VTE Drug Contraindication: N/A - Med Ordered
--- NOTE | 2021-12-29 11:01 | HO.PM.IMPN ---
Subjective Subjective Date of Service: 12/29/21 Interval History: abd pain Review of Systems still has abd pain,asked to try liquid diet Physical Exam Vital Signs: Vital Signs: Last Vital Signs Temp 98.6 F 12/29/21 08:00 Pulse 91 12/29/21 08:00 Resp 20 12/29/21 08:00 BP 126/69 12/29/21 08:00 Pulse Ox 96 12/29/21 08:00 O2 Del Method 12/29/21 08:00 BMI result Body Mass Index 33.6 ? General: AO X 3, no acute distress Resp:? CTA bilateral, no accessory muscles used CVS: S1,S2,RRR GI: soft,? tende in llq , non distended or rebound Neuro:? motor grossly intact, alert Psych: appropriate affect, appropriate insight? Objective Data Active Medications Acetaminophen (Acetaminophen 325 Mg Tablet) 650 mg PO Q6H PRN PRN Reason: Pain, Mild (Pain Scale 1-3) Last Admin: 12/28/21 08:00 Dose: 650 mg Documented By: NIGHAT Atorvastatin Calcium (Atorvastatin Calcium 40 Mg Tablet) 40 mg PO DAILY [facility] Last Admin: 12/29/21 07:55 Dose: 40 mg Documented By: SANDOVAL Enoxaparin Sodium (Enoxaparin Sodium 40 Mg/0.4 Ml Syringe) 40 mg SUBCUT Q24H [facility] Last Admin: 12/28/21 22:51 Dose: Not Given Documented By: ANNMARIE Non-Admin Reason: Patient Refused Ceftriaxone Sodium 1 gm/ (Sodium Chloride) 50 mls @ 100 mls/hr IV Q24H [facility] Last Infusion: 12/28/21 22:47 Dose: 0 mls/hr Documented By: ANNMARIE Metronidazole (Flagyl) 500 mg in 100 mls @ 100 mls/hr IV Q8H [facility] Last Infusion: 12/29/21 08:55 Dose: 0 mls/hr Documented By: SANDOVAL Levothyroxine Sodium (Levothyroxine Sodium 25 Mcg Tablet) 25 mcg PO DAILY@0600 [facility] Last Admin: 12/29/21 06:00 Dose: 25 mcg Documented By: ANNMARIE Morphine Sulfate (Morphine Sulfate 4 Mg/Ml Cartridge) 4 mg IVPUSH Q4H PRN; Protocol PRN Reason: Pain, Severe (Pain Scale 7-10) Last Admin: 12/27/21 04:24 Dose: 4 mg Documented By: RACHEL Ondansetron HCl (Ondansetron Hcl 4 Mg/2 Ml Vial) 4 mg IVPUSH Q8H PRN PRN Reason: Nausea and Vomiting Oxycodone HCl (Oxycodone Hcl Immed Release 5 Mg Tablet) 5 mg PO Q6H PRN PRN Reason: Pain, Severe (Pain Scale 7-10) Last Admin: 12/27/21 17:17 Dose: 5 mg Documented By: AURY Pharmacy Consult (Consult Rx Perform Med Rec) 1 each MISCELLANE ONCE PRN PRN Reason: Consult order Propranolol HCl (Propranolol Hcl 40 Mg Tablet) 80 mg PO BID [facility]; Protocol Last Admin: 12/29/21 07:55 Dose: 80 mg Documented By: SANDOVAL Sodium Chloride (0.9 % Sodium Chloride Flush 3 Ml Syringe) 3 ml IVFLUSH QSHIFT [facility] Last Admin: 12/29/21 07:56 Dose: Not Given Documented By: SANDOVAL Non-Admin Reason: IV Running Labs CBC & Chem 7: 12/29/21 05:46 12/29/21 05:46 Labs: Laboratory Results - last 24 hr 12/29/21 12/29/21 05:46 05:46 MCV 90.0 MCH 30.1 MCHC 33.5 RDW 12.5 Plt Count 255 MPV 10.2 Absolute Nucleated RBC 0.000 Nucleated RBC % (auto) 0.0 Anion Gap 13 Estim Creat Clear Calc 151.6 Estimated GFR > 60 Random Glucose 105 Calcium 8.7 Assessment and Plan (1) Diverticulitis: Status: Acute Plan 31M presented with abd pain acute diverticulitis with microperforation still has significant pain continue rocephin, flagyl follow up cultures npo for now with iv fluids and pain meds-iv morpine surgery following, expected to recover with abx HTN propanolol hld statin hypothyroid synthroid obesity: encouraged for weight loss/cut calories dvt prophylaxis - lovenox full code reason for continued hospitalization:?iv antibiotics as well as close monitoring for microperforation/decompensation and pain managemnt, try liquid diet Quality Stroke Does the patient have a stroke diagnosis?: No VTE Prior VTE?: No VTE Risk Level:: Medical - moderate - high VTE Device Contraindication: Treatment Not Indicated VTE Drug Contraindication: N/A - Med Ordered
[2021-12-29 12:00] VITALS: BP 124/72; PULSE 85; RESP 18; TEMP 36.7; O2SAT 98
[2021-12-29] MEDS: 0.9 % Sodium Chloride Flush 3 ML SYRINGE IVFLUSH (14:52)
[2021-12-29 14:53] VITALS: BP 144/78; PULSE 83; RESP 18; TEMP 37.4; O2SAT 96
[2021-12-29 19:59] VITALS: BP 138/81; PULSE 86; RESP 18; TEMP 36.4; O2SAT 95
[2021-12-29] MEDS: Acetaminophen 325 MG TABLET 650 MG PO (23:39)
[2021-12-29] MEDS: cefTRIAXone sodium 1 GM in 0.9 % Sodium Chloride 50 ML IV (23:40)
[2021-12-30] VITALS: BP 117/61; PULSE 88; RESP 18; TEMP 36.9; O2SAT 97
[2021-12-30] MEDS: metroNIDAZOLE/NS 500 MG/100 ML PIGGYBACK 100 MG IV ×2 (00:28→08:54)
[2021-12-30 03:45] VITALS: BP 123/61; PULSE 76; RESP 18; TEMP 36.4; O2SAT 97
[2021-12-30] MEDS: Levothyroxine Sodium 25 MCG TABLET PO (05:55)
[2021-12-30 07:58] VITALS: BP 134/75; PULSE 90; RESP 18; TEMP 36.2; O2SAT 96
[2021-12-30] MEDS: Atorvastatin Calcium 40 MG TABLET PO (08:52)
[2021-12-30] MEDS: Propranolol HCL 40 MG TABLET 80 MG PO (08:53)
[2021-12-30] MEDS: 0.9 % Sodium Chloride Flush 3 ML SYRINGE IVFLUSH (08:54)
--- NOTE | 2021-12-30 10:22 | P.DS_ITS ---
DS: Providers Provider Date of Service: 12/30/21 Date of admission: 12/26/21 23:28 Primary care physician: Nonstaff Physician Consults: 12/27/21 06:14 Consult to General Surgery Routine Consulting Provider: Guero Beckett Reason for consultation: diverticulitis with questionable microperforation Has provider been notified: No DS: Diagnosis Discharge Diagnosis (1) Diverticulitis: Status: Acute DS: Summary Hospital Course Hospital Course: 31-year-old male with past medical history of hypertension, hyperlipidemia, hypothyroidism who presents to the hospital with complaints of? abdominal pain in the lower abdomen? that started in the a.m..? Patient reports? the pain to be 9/10, nonradiating, not relieved with Tylenol, no associated exacerbating factors.? Has pain in that area when he urinates, he hasno nausea or vomiting, no diarrhea constipation, no urinary symptoms and no lower extremity edema.? Patient denies any fever no chills.? No headache or change in vision.? On arrival to the ED patient hemodynamically stable with a heart rate of 115 Labs are significant for WBC count of 15.4 otherwise unremarkable UA negative. ? CT abdomen revealed focal moderate diverticulitis of the mid sigmoid colon with? questionable microperforation ?patient will be admitted further evaluation. Hospital course: patient admitted for left lower abdominal pain found to have diverticulitis with possible microperforation- started on bowel rest, antibiotics IV, pain management patient seems to be improving- tolerating diet, leukocytosis improving, no fever. will advanced regular if tolerates then will plan discharge discussed with the surgery in detail length patient will be going home with p.o. antibiotics. after completing treatment with antibiotic patient should follow-up outpatie nt - consider outpatient GI evaluation for possible colonoscopy ( since patient has diverticulitis)as per pcp. further management outpatient as per PCP. Plan: Complete the course of antibiotic, consider outpatient colonoscopy as above. High-fiber diet. above management discussed with the patient in detail length she understand and in agreement with the above plan, time spent 50 minute. Time Spent with Patient Time attestation: Total time spent providing and/or coordinating discharge services: Discharge coordination time: Greater than 30 minutes Quality: Safe Use of Opioids Does Pt have an Active Cancer Diagnosis on the Problem List?: No Quality: Stroke Does the patient have a stroke diagnosis?: No Physical Exam Vital Signs: Vital Signs: Last Vital Signs Temp 97.2 F 12/30/21 07:58 Pulse 90 12/30/21 07:58 Resp 18 12/30/21 07:58 BP 134/75 12/30/21 07:58 Pulse Ox 96 12/30/21 07:58 O2 Del Method 12/30/21 07:58 BMI result Body Mass Index 33.6 General: AO X 3, no acute distress Resp:? CTA bilateral, no accessory muscles used CVS: S1,S2,RRR GI: soft,?nt , non distended or rebound Neuro:? motor grossly intact, alert Psych: appropriate affect, appropriate insight? DS: Data Additional Comments Additional comments: Laboratory Results - last 24 hr ? 12/29/21 12/29/21 ? 05:46 05:46 MCV ?90.0 ? D MCH ?30.1 ? MCHC ?33.5 ? RDW ?12.5 ? Plt Count ?255 ? MPVB ?10.2 ? Absolute Nucleated RBC ?0.000 ? Nucleated RBC % (auto) ?0.0 ? Anion Gap ? ?13 Estim Creat Clear Calc ? ?151.6 Estimated GFR ? ?> 60 Random Glucose ? ?105 Calcium ? ?8.7 ct abd: CT/CT abdomen pelvis wo con IMPRESSION: Focal moderate diverticulitis of the mid sigmoid colon? ? Fleischner guidelines were followed. Discharge Plan Discharge Patient Disposition: Home, Self-Care Discharge Diagnosis: acute diverticulitis Referrals: Physician,Nonstaff [Primary Care Provider] - 1 Week Discharge Medications: New levofloxacin 500 mg tablet 500 mg PO DAILY Qty: 5 0RF metronidazole 500 mg tablet 500 mg PO BID Qty: 10 0RF Continued levothyroxine 25 mcg Tablet 25 mcg PO DAILY rosuvastatin [Crestor] 10 mg Tablet 10 mg PO DAILY propranolol 80 mg tablet 1 tab PO BID Discharge Orders: Discharge Order (Routine); Ordered 12/30/21 Ordered By: Nitin Rouse Diet: advance to usual diet Activity on Discharge: As tolerated Stand Alone Forms: Patient Portal Discharge page Care Plan Goals: patient admitted for left lower abdominal pain found to have diverticulitis with possible microperforation- started on bowel rest, antibiotics IV, pain management patient seems to be improving- tolerating diet, leukocytosis improving, no fever. will advanced regular if tolerates then will plan discharge discussed with the surgery in detail length patient will be going home with p.o. antibiotics. after completing treatment with antibiotic patient should follow-up outpatient - consider outpatient GI evaluation for possible colonoscopy ( since patient has diverticulitis)as per pcp. further management outpatient as per PCP. Health Concerns: as above. Please complete the course of antibiotics. if abdominal pain get worse or new symptoms including fever- please come to the nearest emergency room for further evaluation. Plan of Treatment: As above Assessment: as above. Patient Instructions: Diverticulitis (DC)
[2021-12-30] MEDS: levoFLOXacin 500 MG TABLET PO (11:47)
--- NOTE | 2021-12-30 11:54 | PM.PNGS ---
Subjective Subjective Date of Service: 12/30/21 Patient reports: no new complaints, feels better, pain is less and tolerating liquids well Interval history: The patient reports I feel the best I felt in days and is passing gas and moving his bowels. He denies any significant abdominal pain and is interested in having his diet advanced and a discharge home. We did discuss the possibility of colon cancer mimicking diverticulitis and that he needs to have a colonoscopy back in [place]/at home sometime in the next 3 months. He otherwise denies interval change in has no other complaints. Physical Exam Vital Signs: Vital Signs: Last Vital Signs Temp 97.2 F 12/30/21 07:58 Pulse 90 12/30/21 07:58 Resp 18 12/30/21 07:58 BP 134/75 12/30/21 07:58 Pulse Ox 96 12/30/21 07:58 O2 Del Method 12/30/21 07:58 BMI result Body Mass Index 33.6 Abdomen is soft and much less tender than yesterday. None of the suprapubic discomfort that was present is there today. No peritoneal sign is present and no hernias are appreciated. Objective Data Active Medications Acetaminophen (Acetaminophen 325 Mg Tablet) 650 mg PO Q6H PRN PRN Reason: Pain, Mild (Pain Scale 1-3) Last Admin: 12/29/21 23:39 Dose: 650 mg Documented By: ANNMARIE Atorvastatin Calcium (Atorvastatin Calcium 40 Mg Tablet) 40 mg PO DAILY [facility] Last Admin: 12/30/21 08:52 Dose: 40 mg Documented By: CARLA Enoxaparin Sodium (Enoxaparin Sodium 40 Mg/0.4 Ml Syringe) 40 mg SUBCUT Q24H [facility] Last Admin: 12/30/21 00:32 Dose: Not Given Documented By: ANNMARIE Non-Admin Reason: Patient Refused Levothyroxine Sodium (Levothyroxine Sodium 25 Mcg Tablet) 25 mcg PO DAILY@0600 [facility] Last Admin: 12/30/21 05:55 Dose: 25 mcg Documented By: ANNMARIE Morphine Sulfate (Morphine Sulfate 4 Mg/Ml Cartridge) 4 mg IVPUSH Q4H PRN; Protocol PRN Reason: Pain, Severe (Pain Scale 7-10) Last Admin: 12/27/21 04:24 Dose: 4 mg Documented By: RACHEL Ondansetron HCl (Ondansetron Hcl 4 Mg/2 Ml Vial) 4 mg IVPUSH Q8H PRN PRN Reason: Nausea and Vomiting Oxycodone HCl (Oxycodone Hcl Immed Release 5 Mg Tablet) 5 mg PO Q6H PRN PRN Reason: Pain, Severe (Pain Scale 7-10) Last Admin: 12/27/21 17:17 Dose: 5 mg Documented By: AURY Pharmacy Consult (Consult Rx Perform Med Rec) 1 each MISCELLANE ONCE PRN PRN Reason: Consult order Propranolol HCl (Propranolol Hcl 40 Mg Tablet) 80 mg PO BID [facility]; Protocol Last Admin: 12/30/21 08:53 Dose: 80 mg Documented By: CARLA Sodium Chloride (0.9 % Sodium Chloride Flush 3 Ml Syringe) 3 ml IVFLUSH QSHIFT [facility] Last Admin: 12/30/21 08:54 Dose: 3 ml Documented By: CARLA Labs CBC & Chem 7: 12/29/21 05:46 12/29/21 05:46 Labs: No labs today are needed since the patient is clinically improved Procedures Date of Service Date of Service: 12/30/21 Progress Note: A&P Assessment and plan (1) Diverticulitis: Status: Acute Plan The importance of colonoscopy and follow-up with his PCP and evaluation by a general/colorectal surgeon was reviewed with the patient. The possibility of a free micro perforation turning into severe fecal peritonitis was discussed and apparently understood. The importance of increasing to a high-fiber diet and risk of recurrence of diverticulitis was also discussed and apparently understood. The importance of a colonoscopy within the next few months to rule out colorectal cancer mimicking diverticulitis was also reviewed and seem to be understood by the patient. Patient can be advanced to a soft/regular or low residue diet and discharged with follow-up at his home in [place]. Thank you for asking me to participate in his care. Time Spent With Patient Time: Total time spent is greater than 50% in coordination of care (as documented) at patient's floor/unit and/or counseling patient: Quality Stroke Does the patient have a stroke diagnosis?: No VTE Prior VTE?: No VTE Risk Level:: Medical - moderate - high VTE Device Contraindication: Treatment Not Indicated VTE Drug Contraindication: N/A - Med Ordered
--- NOTE | 2021-12-30 13:18 | MHC.CM.PN ---
PT WILL DC HOME TODAY WITH NO SERVICES VIA SELF ARRANGED TRANSPORT
== END 2021-12-30 12:00 | disposition home or self-care (01) | DRG 244 ==
LOC: HO.ED 21:34 → HO.EDOVER 23:40 → HO.S3 12-27 11:50
PROVIDERS: Internal Medicine; Admitting Provider Internal Medicine; Emergency Provider Internal Medicine; Visit Provider Internal Medicine
DX: K57.20 Diverticulitis of large intestine with perforation and abscess without bleeding (principal); I10 Essential (primary) hypertension; E03.9 Hypothyroidism, unspecified; E66.9 Obesity, unspecified; E78.5 Hyperlipidemia, unspecified; Z71.3 Dietary counseling and surveillance; Z68.33 Body mass index [BMI] 33.0-33.9, adult; Z20.822 Contact with and (suspected) exposure to COVID-19; Z79.890 Hormone replacement therapy; Z79.899 Other long term (current) drug therapy
CPT/HCPCS: 36415; 74176; 80048; 80053; 81001; 82248; 83690; 85025; 85027; 87635; 96361; 96365; 96375; 99218; 99285; J0696; J1650; J2270; J2405; J2543